=== PATIENT | female | born 1995 | race Caucasian/White ===

== ENCOUNTER 2020-05-25 18:34 | Emergency (ER) | payer OTHER ==
[2020-05-25 19:48] LABS: HEMOGLOBIN 8.9 gm/dl (12.3-15.3); RED BLOOD COUNT 4.68 M/UL (4.00-5.10); WHITE BLOOD COUNT 7.8 K/UL (4.5-11.0)
[2020-05-25 19:59] LABS: BUN/CREATININE RATIO 12 (0-10)
[2020-05-25] MEDS ORDERED: IRON325 M1 PO (21:56)
== END 2020-05-25 22:00 | disposition home or self-care (01) ==
LOC: ER1 18:34
PROVIDERS: Family Medicine
DX: K51.90 Ulcerative colitis, unspecified, without complications (principal); D50.9 Iron deficiency anemia, unspecified; R19.7 Diarrhea, unspecified; R51.9 Headache, unspecified; Z79.899 Other long term (current) drug therapy
CPT/HCPCS: 70450; 80053; 85025; 96374; 96375; 99284; J0780; J1110; J1200

== ENCOUNTER → 2020-05-29 | Outpatient (CLI) | payer OTHER ==
[~2020-05-29] VITALS: Ht 165.1 cm; Wt 79.4 kg
[~2020-05-29] MED LIST: IRON325 M1 PO
[2020-06-07 23:07] LABS: 6-MMPN <152 (.); 6-TGN <30 (.)
== END ==
LOC: OPSV 08:00
PROVIDERS: Internal Medicine
DX: K51.50 Left sided colitis without complications (principal)
CPT/HCPCS: 36415; 80299; 96365; 96366; 96375; 96413; 96415; J1720; J1745; J7030

== ENCOUNTER → 2020-06-12 | Outpatient (CLI) | payer OTHER ==
[~2020-06-12] VITALS: Ht 165.1 cm; Wt 79.4 kg
== END ==
LOC: OPSV 08:00
DX: K51.50 Left sided colitis without complications (principal)
CPT/HCPCS: 96365; 96375; 96413; J1720; J1745; J7050

== ENCOUNTER → 2020-07-10 | Outpatient (CLI) | payer OTHER ==
[~2020-07-10] VITALS: Ht 165.1 cm; Wt 79.4 kg
[2020-07-14 04:06] LABS: TPMT ACTIVITY 29.9 (.)
== END ==
LOC: OPSV 09:30
PROVIDERS: Internal Medicine
DX: K51.90 Ulcerative colitis, unspecified, without complications (principal); M25.512 Pain in left shoulder; Z98.890 Other specified postprocedural states
CPT/HCPCS: 36415; 96365; 96366; 96375; J1720; J7050; Q5103

== ENCOUNTER → 2020-09-04 | Outpatient (CLI) | payer OTHER ==
[~2020-09-04] VITALS: Ht 165.1 cm; Wt 79.4 kg
[2020-09-18 19:13] LABS: ANTI-INFLIXIMAB ANTIBODY <22 ng/mL (.); INFLIXIMAB DRUG LEVEL 7.7 ug/mL (.)
== END ==
LOC: OPSV 10:00
PROVIDERS: Internal Medicine
DX: K51.50 Left sided colitis without complications (principal); M25.512 Pain in left shoulder; Z98.890 Other specified postprocedural states
CPT/HCPCS: 80299; 82397; 96375; 96413; 96415; J1720; J1745; J7030

== ENCOUNTER → 2020-10-30 | Outpatient (CLI) | payer OTHER ==
[~2020-10-30] VITALS: Ht 165.1 cm; Wt 79.4 kg
== END ==
LOC: OPSV 10:00
DX: K51.90 Ulcerative colitis, unspecified, without complications (principal); K51.50 Left sided colitis without complications; M25.512 Pain in left shoulder; Z79.899 Other long term (current) drug therapy; Z79.52 Long term (current) use of systemic steroids
CPT/HCPCS: 96375; 96413; 96415; J1720; J1745; J7030

== ENCOUNTER → 2020-12-11 | Outpatient (CLI) | payer OTHER ==
[~2020-12-11] VITALS: Ht 165.1 cm; Wt 79.4 kg
[2020-12-11 10:47] LABS: HEMOGLOBIN 9.5 gm/dl (12.3-15.3); RED BLOOD COUNT 4.69 M/UL (4.00-5.10); WHITE BLOOD COUNT 7.1 K/UL (4.5-11.0)
[2020-12-11 11:13] LABS: BUN/CREATININE RATIO 19 (0-10)
[2020-12-14 04:08] LABS: QUANTIFERON MITOGEN VALUE 1.04 IU/mL (.); QUANTIFERON NIL VALUE 0.07 IU/mL (.); QUANTIFERON TB1 AG VALUE 0.06 IU/mL (.); QUANTIFERON TB2 AG VALUE 0.06 IU/mL (.); QUANTIFERON-TB GOLD PLUS Negative (Negative)
== END ==
LOC: OPSV 10:00
PROVIDERS: Internal Medicine
DX: K51.90 Ulcerative colitis, unspecified, without complications (principal)
CPT/HCPCS: 80053; 85025; 86140; 96375; 96413; 96415; J1720; J1745; J7030